=== PATIENT | female | born 1985 | race Caucasian/White ===

== ENCOUNTER → 2019-07-22 | Outpatient (CLI) | payer MEDICARE, OTHER ==
--- NOTE | 2019-07-22 11:11 | CT ---
EXAMINATION TYPE: CT brain wo con DATE OF EXAM: 07/22/2019 COMPARISON: None available at this location INDICATION: Dizziness, Numbness DLP: 1017.9 mGycm, Automated exposure control for dose reduction was used. CONTRAST: None CT of the brain is performed utilizing 3 mm thick sections through the posterior fossa and 3 mm thick sections through the remaining calvarium. Study is performed within 24 hours of arrival to the hosp [facility]. No abnormal hyperdensity is present to suggest an acute intracranial hemorrhage. No mass lesion is evident. No acute infarcts are evident. There is a right sided shunt catheter entering the frontal parietal region with the tip in the latera l ventricle. Right lateral ventricle appears enlarged and slightly irregular. No temporal horn dilata tion is evident. Left lateral ventricle is more normal appearance. No midline shift is evident. Third ventricle appears normal and midline. Fourth ventricle is normal and midline. No dilated sulci are e vident. Paranasal sinuses and mastoid air cells within the [id number] are clear. Craniotomy or nonfusion of the posterior vertex is present. Additional ostomy is in the left parietal-occipital calvarium. IMPRESSIONS: 1. There is prominence of the right lateral ventricle which contains a shunt. However, no temporal horn dilatation is evident suggest acute hydrocephalus. Remaining ventricles are more normal appearan ce. 2. No suspicious acute intracranial changes. There are likely some chronic calvarial changes discusse d above.
== END | disposition home or self-care (01) ==
LOC: RADCTMAIN 10:36
PROVIDERS: ATTEND Family Medicine
DX: R42 Dizziness and giddiness (principal); R20.2 Paresthesia of skin
CPT/HCPCS: 70450; 80053; 80061; 80175; 81001; 82306; 82533; 82550; 82607; 82746; 83001; 83002; 83036; 83615; 83735; 83970; 84146; 84403; 84439; 84443; 85025; 85652; 86038; 86039; 86140

== ENCOUNTER → 2019-08-24 | Outpatient (CLI) | payer MEDICARE, OTHER ==
[2019-08-24 12:39] LABS: Basophils # (A) 0.1 k/uL (0-0.2); Basophils % (A) 1 %; Eosinophils # (A) 0.1 k/uL (0-0.7); Eosinophils % (A) 2 %; HCT 42.5 % (34.0-46.0); HGB 14.3 gm/dL (11.4-16.0); Lymphocytes # (A) 1.9 k/uL (1.0-4.8); Lymphocytes % (A) 25 %; MCH 29.1 pg (25.0-35.0); MCHC 33.7 g/dL (31.0-37.0); MCV 86.3 fL (80.0-100.0); Mean Platelet Volume 7.3; Monocytes # (A) 0.3 k/uL (0-1.0); Monocytes % (A) 4 %; Neutrophils # (A) 5.1 k/uL (1.3-7.7); Neutrophils % (A) 68 %; Platelet Count 268 k/uL (150-450); RBC 4.93 m/uL (3.80-5.40); RDW 14.2 % (11.5-15.5); WBC 7.6 k/uL (3.8-10.6)
[2019-08-24 16:40] LABS: African American GFR (CKD) 86.9 (60.0-200.0); Albumin 5.3 g/dL (3.80-4.90); Albumin/Globulin Ratio 3.12 (1.60-3.17); Anion Gap 9.8 mmol/L (4.00-12.00); Calcium 9.7 mg/dL (8.7-10.3); Carbon Dioxide 27.2 mmol/L (21.6-31.8); Globulin 1.7 g/dL (1.6-3.3); Total Bilirubin 0.3 mg/dL (0.2-1.2)
[2019-08-24 17:56] LABS: Hepatitis B Surface AB- Quant 3.5 mIU/mL; Hepatitis B Surface Antibody Non-Reactive (Non-Reactive); Hepatitis B Surface Antigen Non-Reactive (Non-Reactive)
== END ==
LOC: LABWHC1 10:35
PROVIDERS: ATTEND Family Medicine
DX: Z01.812 Encounter for preprocedural laboratory examination (principal); L40.0 Psoriasis vulgaris
CPT/HCPCS: 36415; 80053; 85025; 86480; 86706; 87340

== ENCOUNTER → 2020-03-16 | Outpatient (CLI) | payer MEDICARE, OTHER | END | disposition home or self-care (01) | LOC: LABWHC1 07:45 | PROVIDERS: ATTEND Internal Medicine Endocrinology, Diabetes & Metabolism | DX: E03.8 Other specified hypothyroidism (principal) | CPT/HCPCS: 36415; 84443 ==

== ENCOUNTER → 2020-05-09 | Outpatient (CLI) | payer MEDICARE, OTHER | END | disposition home or self-care (01) | LOC: LABWHC1 08:27 | PROVIDERS: ATTEND Internal Medicine Endocrinology, Diabetes & Metabolism | DX: E03.8 Other specified hypothyroidism (principal) | CPT/HCPCS: 36415; 84443 ==

== ENCOUNTER → 2020-08-23 | Outpatient (CLI) | payer MEDICARE, OTHER | END | disposition home or self-care (01) | LOC: LABWHC1 08:16 | PROVIDERS: ATTEND Internal Medicine Endocrinology, Diabetes & Metabolism | DX: E03.8 Other specified hypothyroidism (principal) | CPT/HCPCS: 36415; 84443 ==

== ENCOUNTER → 2020-09-02 | Outpatient (CLI) | payer MEDICARE, OTHER | END | disposition home or self-care (01) | LOC: LABWHC1 08:20 | PROVIDERS: ATTEND Internal Medicine Endocrinology, Diabetes & Metabolism | DX: E03.8 Other specified hypothyroidism (principal) | CPT/HCPCS: 36415; 84443 ==

== ENCOUNTER → 2020-09-09 | Outpatient (CLI) | payer MEDICARE, OTHER ==
[2020-09-09 10:55] LABS: Follicle Stimulating Hormone 6.6 mIU/mL; Luteinizing Hormone 2.1 mIU/mL; Prolactin 7.1 ng/mL (2.8-29.2)
== END | disposition home or self-care (01) ==
LOC: LABWHC1 07:12
PROVIDERS: ATTEND Internal Medicine Endocrinology, Diabetes & Metabolism
DX: R53.83 Other fatigue (principal)
CPT/HCPCS: 36415; 82024; 82533; 83001; 83002; 84146; 84305

== ENCOUNTER → 2020-09-15 | Outpatient (CLI) | payer MEDICARE, OTHER ==
[2020-09-15 08:52] LABS: Basophils # (A) 0.1 k/uL (0-0.2); Basophils % (A) 2 %; Eosinophils # (A) 0.2 k/uL (0-0.7); Eosinophils % (A) 3 %; HCT 42.3 % (34.0-46.0); HGB 14.4 gm/dL (11.4-16.0); Lymphocytes # (A) 1.4 k/uL (1.0-4.8); Lymphocytes % (A) 24 %; MCH 28.2 pg (25.0-35.0); MCHC 34.2 g/dL (31.0-37.0); MCV 82.6 fL (80.0-100.0); Mean Platelet Volume 6.8; Monocytes # (A) 0.2 k/uL (0-1.0); Monocytes % (A) 3 %; Neutrophils % (A) 67 %; Platelet Count 265 k/uL (150-450); RBC 5.12 m/uL (3.80-5.40); RDW 14.9 % (11.5-15.5)
--- NOTE | 2020-09-15 10:00 | XR ---
EXAMINATION TYPE: XR chest 2V DATE OF EXAM: 09/15/2020 COMPARISON: 12/31/2015 HISTORY: 34-year-old female night sweats. TECHNIQUE: Frontal and lateral views FINDINGS: The cardiomediastinal silhouette, aorta, and pulmonary vasculature are within normal limits. Lungs an d pleural spaces are clear. Old healed fracture deformity left posterolateral sixth rib. Redemonstrated shunt catheter extending from the cavoatrial junction down along the left side of the body outside the field of view. IMPRESSION: No acute cardiopulmonary process. Left-sided shunt catheter redemonstrated, proximal tip at the cavoa trial junction and lower end beyond the [id number].
[2020-09-15 16:22] LABS: Protein, Total 7.1 g/dL (6.2-8.2)
[2020-09-15 16:37] LABS: C Reactive Protein 0.4 mg/dL (0.0-0.8); Chol/HDL Ratio 7.09; Magnesium 2.2 mg/dL (1.5-2.4)
[2020-09-15 16:38] LABS: African American GFR (CKD) 98.1 (60.0-200.0); Albumin 5.3 g/dL (3.80-4.90); Albumin/Globulin Ratio 3.12 (1.60-3.17); Anion Gap 12.1 mmol/L (4.00-12.00); BUN/Creat Ratio 13.33 Ratio (12.00-20.00); Calcium 10.1 mg/dL (8.7-10.3); Carbon Dioxide 25.9 mmol/L (21.6-31.8); Globulin 1.7 g/dL (1.6-3.3); Non-African American GFR(CKD) 84.6 (60.0-200.0); Potassium 4.1 mmol/L (3.5-5.5); Total Bilirubin 0.4 mg/dL (0.3-1.2)
[2020-09-15 16:59] LABS: Uric Acid 6.7 mg/dL (2.9-7.7)
[2020-09-15 17:46] LABS: Anti-DNA, DS unit <1.0 IU/mL; Anti-Smith Ab Interp NEGATIVE (NEGATIVE); DNA Double-Stranded NEGATIVE (NEGATIVE)
[2020-09-16 03:46] LABS: EBV - VCA IgM <10.0 U/mL (<36.0)
[2020-09-16 12:57] LABS: Angiotensin-1 Converting Enz. 35 U/L (8-52)
[2020-09-16 14:57] LABS: Albumin 4.69 g/dL (3.80-4.90); Gamma Globulin 0.59 g/dL (0.70-1.50)
== END | disposition home or self-care (01) ==
LOC: LABWHC1 08:09
PROVIDERS: ATTEND Family Medicine
DX: Z97.8 Presence of other specified devices (principal); L40.0 Psoriasis vulgaris; R63.5 Abnormal weight gain; E03.9 Hypothyroidism, unspecified; B37.9 Candidiasis, unspecified; Z79.899 Other long term (current) drug therapy
CPT/HCPCS: 36415; 71046; 80053; 80061; 82164; 82306; 82550; 82607; 83036; 83615; 83721; 83735; 83970; 84165; 84443; 84550; 85025; 85652; 86038; 86039; 86140; 86225; 86235; 86431; 86480; 86644; 86645; 86663; 86665; 86780; 87040

== ENCOUNTER → 2020-09-22 | Outpatient (CLI) | payer MEDICARE, OTHER ==
--- NOTE | 2020-09-22 12:40 | ECHOF ---
Referral Reason:R94.31 Abnormal EKG MEASUREMENTS -------- HEIGHT: 152.4 cm WEIGHT: 86.2 kg BP: RVIDd: 2.2 cm (< 3.3) IVSd: 1.1 cm (0.6 - 1.1) LVIDd: 3.1 cm (3.9 - 5.3) LVPWd: 1.4 cm (0.6 - 1.1) IVSs: 1.4 cm LVIDs: 1.6 cm LVPWs: 1.5 cm LAESV Index (A-L): 16.56 ml/m Ao Diam: 2.7 cm (2.0 - 3.7) AV Cusp: 1.7 cm (1.5 - 2.6) LA Diam: 3.1 cm (2.7 - 3.8) MV EXCURSION: 9.371 mm (> 18.000) MV EF SLOPE: 69 mm/s (70 - 150) EPSS: 0.5 cm MV E Neal: 0.51 m/s MV DecT: 151 ms MV A Neal: 0.81 m/s MV E/A Ratio: 0.63 RAP: 5.00 mmHg RVSP: 12.14 mmHg FINDINGS -------- Sinus rhythm. This was a technically adequate study. The left ventricular size is normal. There is mild concentric left ventricular hypertrophy. Overa ll left ventricular systolic function is normal with, an EF between 55 - 60 %. The diastolic fillin g pattern is normal for the age of the patient 13.71. The right ventricle is normal in size. Normal LA size by volume 22+/-6 ml/m2. The right atrial size is normal. Interatrial and interventricular septum intact. The aortic valve is trileaflet, and appears structurally normal. No aortic stenosis or regurgitation. The mitral valve is normal. There is trace to mild mitral regurgitation. The tricuspid valve appears structurally normal. Trace tricuspid regurgitation present. Right johnny tricular systolic pressure is normal at < 35 mmHg. Trace/mild (physiologic) pulmonic regurgitation. The aortic root size is normal. Normal inferior vena cava with normal inspiratory collapse consistent with estimated right atrial pre ssure of 5 mmHg. There is no pericardial effusion. CONCLUSIONS -------- 1. There is mild concentric left ventricular hypertrophy. 2. Overall left ventricular systolic function is normal with, an EF between 55 - 60 %. 3. Normal LA size by volume 22+/-6 ml/m2. 4. The aortic valve is trileaflet, and appears structurally normal. No aortic stenosis or regurgitati on. 5. There is trace to mild mitral regurgitation. 6. Trace tricuspid regurgitation present. 7. Trace/mild (physiologic) pulmonic regurgitation. 8. There is no pericardial effusion. REELING MACHINE SETUP OPERATOR: Haydee Ace RDCS
== END | disposition home or self-care (01) ==
LOC: RADECHMAIN 08:04
PROVIDERS: ATTEND Family Medicine
DX: I34.0 Nonrheumatic mitral (valve) insufficiency (principal); I37.1 Nonrheumatic pulmonary valve insufficiency; I51.7 Cardiomegaly
CPT/HCPCS: 93306

== ENCOUNTER → 2020-11-09 | Outpatient (CLI) | payer MEDICARE, OTHER ==
--- NOTE | 2020-11-09 11:48 | CONS ---
CONSULTATION DATE OF SERVICE: 11/09/2020 A 34-year-old lady had been evaluated in Sleep Center for possible obstructive sleep apnea-hypopnea syndrome. HISTORY OF PRESENT ILLNESS/SLEEP-WAKE EVALUATION: Patient usual sleep schedule usually from 8 p.m. to 7 a.m. Sometimes she has problems with falling asleep, but usually not more than one hour. No TV in bedroom. Patient usually sleeps on the side position. She snores loudly and wakes up 3 times for nocturia. According to her family, she possibly has episodes of stopped breathing during sleep. She grinds her teeth, wakes up with dry mouth, sweating. In the morning, patient wakes up tired, has difficulties to pay attention, falling asleep during the day, worry about her sleep. Has problem with memory, concentration, irritability, depression and anxiety. [place] Sleepiness Scale is 6, but the patient take Adderall 20 mg once a day. She also drinks one diet Pepsi at lunch time. She takes up to 3 naps during the day. No history of hypnagogic hallucinations, sleep paralysis or cataplexy. PAST MEDICAL HISTORY: Positive for , hydrocephalus, hypothyroidism, anxiety, allergy, difficulties to concentrate during the day possible ADHD. History of low cortisol level and then a level of cortisol normalized later. History of hyperlipidemia, history of headaches. PAST SURGICAL HISTORY: History of multiple eye surgeries for the muscle repair, MANAGER TELEMETRY shunt insertion and corrections multiple times with stoma. MEDICATIONS: 10 mg once a day, Synthroid 150 mcg once a day, Zoloft 100 mg 2 tablets in the morning, Inderal 20 mg once a day in the morning, lamotrigine 200 mg at bedtime, Hydroxyzine 20 mg once at bedtime. SOCIAL HISTORY: Negative for smoking or using alcohol. FAMILY HISTORY: Hypertension, diabetes, REVIEW OF SYSTEMS: Multiple awakenings from sleep with nocturia, sleepiness during the day, headaches. PHYSICAL EXAMINATION: GENERAL: lady without distress. VITAL SIGNS: BP 125/76, HR 96, RR 15, height 5 inches 2, weight 203.8, temperature 98.4, oxygen saturation at room air 95%. Body mass index 37.1. HEENT: PERRLA, EOMI. Oropharynx low position of soft palate, Mallampati 3-4, wide neck 16 inches in circumference. NECK: Supple, no JVD. Thyroid is not palpable. LUNGS: Clear to percussion and to auscultation. Good air exchange. No wheezing or rhonchi. HEART: S1, S2 regular. No murmurs, gallops, or rubs. ABDOMEN: Obese. EXTREMITIES: No clubbing or cyanosis. SLEEPING CAR CONDUCTOR: Awake, alert, and oriented X3. Cranial nerves 2 to 7 intact. There is no fasciculation or atrophy. noted. No focal deficits observed. IMPRESSION: 1. Snoring, multiple awakenings from sleep with nocturia, low position of soft palate, wide neck, obstructive sleep apnea-hypopnea syndrome. 2. Symptoms of significant excessive daytime sleepiness. Patient may take naps several times a day, even while taking Adderall 20 mg in the morning. Differential diagnosis should include hypersomnia, possibly narcolepsy secondary to brain problems. 3. History of . 4. History of multiple brain surgery for MANAGER TELEMETRY shunt insertion and corrections. 5. History of hydrocephalus. 6. History of low level of cortisol in the past with lately normalization level of cortisol. 7. Allergies including TOPICAL IODINE. 8. 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 PLAN: 1. Polysomnography for evaluation of patient's breathing during sleep. 2. CPAP/BiPAP titration if sleep study confirms obstructive sleep apnea-hypopnea syndrome. 3. Preferable position during sleep on the side. 4. No driving if patient feels any sleepiness. 5. I will see patient for follow up visit to explain results of testing and following plan. 6. The patient may need multiple sleep latency test for objective evaluation in her symptoms of excessive daytime sleepiness, which should be done without taken Adderall that day. Thank you very much for referring this patient for consultation. Sincerely, Ryland Hanson MD, PhD, FAASM Diplomat of [employer] [employer] [employer] Card Grader of [facility] [place] MMODL / IJN: [id number] /
== END | disposition home or self-care (01) ==
LOC: SLEEP 10:12
PROVIDERS: ATTEND Internal Medicine
DX: G47.33 Obstructive sleep apnea (adult) (pediatric) (principal); Z98.2 Presence of cerebrospinal fluid drainage device; Z86.69 Personal history of other diseases of the nervous system and sense organs; Z91.041 Radiographic dye allergy status; Z79.899 Other long term (current) drug therapy
CPT/HCPCS: 99211

== ENCOUNTER → 2021-02-22 | Outpatient (CLI) | payer MEDICARE, OTHER ==
--- NOTE | 2021-02-22 20:11 | SFUN ---
SLEEP CENTER FOLLOW UP NOTE DATE OF SERVICE: 02/22/2021. HISTORY: A 35-year-old lady has been followed in Sleep Center for treatment of obstructive sleep apnea-hypopnea syndrome. Recently the patient had a polysomnogram and CPAP BiPAP titration. I discussed with the patient in details of sleep studies. She has extremely bad obstructive sleep apnea- hypopnea syndrome with extremely high apnea-hypopnea index and extremely bad oxygen desaturation. Today is her first visit after she was started on treatment with BiPAP. She feels significantly better and feels significant improvements with her alertness during the day. [place] Sleepiness Scale today is only 2. During original consultation [place] Sleepiness Scale was 6. The patient was also was on treatment with Adderall for possible ADD. I checked BiPAP unit, maximal inspiratory pressure 19, minimal expiratory pressure 10, pressure support. Average pressure 17.8 for 13.8. Apnea-hypopnea index is 5.4, which is acceptable. Usage /30 nights with 05/25 nights for more than 4 hours. Average 5.2 hours per night, 6 L/minute. MEDICATIONS: Synthroid 150 mcg once a day, Zoloft 100 mg 2 tablets in the morning, Inderal 20 mg once a day in the morning, lamotrigine 200 mg at bedtime, hydroxyzine 20 mg once at bedtime as well, Lamictal. PHYSICAL EXAMINATION: GENERAL: Patient in no distress. VITAL SIGNS: BP 126/82, HR 96, RR 16, weight 203.2, temperature 97.5. HEENT: PERRLA, EOMI. Oropharynx low position of soft palate, Mallampati 3-4. HEART: S1, S2 regular. No murmurs, gallops or rubs. LUNGS: Clear to percussion and to auscultation. Good air exchange. No wheezing or rhonchi. HEART: S1, S2 regular. No murmurs, gallops, or rubs. ABDOMEN: Slightly obese. Soft and nontender. Bowel sounds are present. No organomegaly appreciated. EXTREMITIES: No clubbing or cyanosis. PRICING ANALYST: Awake, alert, and oriented X3. Cranial nerves 2 to 7 intact. There is no fasciculation or atrophy. noted. No focal deficits observed. IMPRESSION: 1. Extremely severe obstructive sleep apnea-hypopnea syndrome. The apnea-hypopnea index 122, with oxygen desaturation to 30.5%, and with oxygen below normal range during diagnostic sleep study for 228 minutes. The patient demonstrated good compliance with treatment and benefitting from treatment. 2. Obesity. 3. History of multiple brain surgery for FLEET MECHANIC shunt insertion and corrections. 4. History of hydrocephalus. 5. History of low level of cortisol in the past with lately haptoglobin level low. 6. ALLERGY INCLUDING TOPICAL IODINE. 7. 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 8. Hypothyroidism. 9. History of possible ADHD. PLAN: 1. Patient will continue to use PAP equipment every night for the whole night. 2. Sleep hygiene with regular time in bed for at least 7-1/2 to 8 hours. 3. Precautions related to driving. No driving if feeling sleepiness. 4. I will maintain all necessary prescription for PAP supplies including mask, tube, filters. 5. Watching weight. 6. Follow-up visit in 6 months or earlier if patient has any problems. Thank you very much for allowing me to participate in the management of the patient. Ryland Hanson MD, PhD, FAASM Diplomat of [place] [employer] [employer] Medicine Lasting Machine Operator Hand Method of [facility] [place] MMODL / IJN: [id number] /
== END ==
LOC: SLEEP 11:15
PROVIDERS: ATTEND Internal Medicine
DX: G47.33 Obstructive sleep apnea (adult) (pediatric) (principal); G47.36 Sleep related hypoventilation in conditions classified elsewhere; E66.9 Obesity, unspecified; E03.9 Hypothyroidism, unspecified; Z86.69 Personal history of other diseases of the nervous system and sense organs; Z98.890 Other specified postprocedural states; Z86.39 Personal history of other endocrine, nutritional and metabolic disease; Z91.041 Radiographic dye allergy status; Z98.2 Presence of cerebrospinal fluid drainage device; Z99.81 Dependence on supplemental oxygen; Z79.899 Other long term (current) drug therapy

== ENCOUNTER → 2021-08-23 | Outpatient (CLI) | payer MEDICARE, OTHER | END | disposition home or self-care (01) | LOC: LABWHC1 08:41 | PROVIDERS: ATTEND Internal Medicine Endocrinology, Diabetes & Metabolism | DX: E03.8 Other specified hypothyroidism (principal) | CPT/HCPCS: 36415; 84443 ==

== ENCOUNTER → 2021-08-23 | Outpatient (CLI) | payer MEDICARE, OTHER ==
[2021-08-23 15:03] LABS: Basophils # (A) 0.06 X 10*3/uL (0.00-0.10); Eosinophils # (A) 0.22 X 10*3/uL (0.04-0.35); Eosinophils % (A) 3.6 %; HCT 38.6 % (37.2-46.3); HGB 12.1 g/dL (12.0-15.0); Lymphocytes # (A) 1.62 X 10*3/uL (0.90-5.00); Lymphocytes % (A) 26.5 %; MCH 26.7 pg (27.0-32.0); MCHC 31.3 g/dL (32.0-37.0); Mean Platelet Volume 9.3 fL (9.5-12.2); Monocytes # (A) 0.34 X 10*3/uL (0.20-1.00); Monocytes % (A) 5.6 %; Neutrophils # (A) 3.86 X 10*3/uL (1.80-7.70); Platelet Count 215 X 10*3/uL (140-440); RBC 4.54 X 10*6/uL (4.10-5.20); RDW 14.8 % (11.5-14.5); WBC 6.12 X 10*3/uL (4.50-10.00)
[2021-08-23 16:18] LABS: Non-African American GFR(CKD) 80.2 (60.0-200.0)
== END | disposition home or self-care (01) ==
LOC: LABWHC1 08:39
PROVIDERS: ATTEND Dermatology
DX: L40.0 Psoriasis vulgaris (principal)
CPT/HCPCS: 36415; 82565; 84450; 84460; 85025; 86480

== ENCOUNTER → 2021-11-15 | Outpatient (CLI) | payer MEDICARE, OTHER ==
--- NOTE | 2021-11-15 19:45 | SFUN ---
SLEEP CENTER FOLLOW UP NOTE DATE OF SERVICE: 11/15/2021 This 35-year-old lady has been followed in Sleep Center for treatment of obstructive sleep apnea-hypopnea syndrome. The patient continues to use her BiPAP equipment every night. She sleeps well with the machine and is getting her BiPAP supplies on time. [place] Sleepiness Scale today is 4, which is in normal range. I checked her BiPAP unit. Maximal inspiratory pressure is 19, minimal expiratory pressure 10, pressure support of 4, average pressure 18/14. Usage is 28/30 nights and 26/30 nights for more than 4 hours with average usage 6.9 hours per night, which is great compliance. Leak is 4 L/minute, which is normal. Apnea-hypopnea index is 3.1, which is normal. MEDICATIONS: 1. Zoloft 25 mg once a day. 2. Lamictal 200 mg at bedtime. 3. Synthroid 150 mcg once a day. 4. Adderall 20 mg in the morning. PHYSICAL EXAMINATION: GENERAL: Pleasant patient in no distress. VITAL SIGNS: BP 127/86, HR 98, RR 16, weight 214.2, temperature 96.5, oxygen saturation at room air 97%. HEENT: PERRLA, EOMI, evaluation of oropharynx showed tongue protrudes midline. Low position of soft palate; Mallampati III to IV. NECK: Supple, no JVD. Thyroid is not palpable. LUNGS: Clear to percussion and to auscultation. Good air exchange. No wheezing or rhonchi. HEART: S1, S2 regular. No murmurs, gallops, or rubs. ABDOMEN: Obese. EXTREMITIES: No clubbing or cyanosis. MOTION PICTURES CARTOONIST: Awake, alert, and oriented X3. Cranial nerves 2 to 7 intact. There is no fasciculation or atrophy. noted. No focal deficits observed. IMPRESSION: 1. Extremely severe obstructive sleep apnea-hypopnea syndrome; apnea-hypopnea index 122 with oxygen desaturation to 30.5%. Patient demonstrated great compliance with treatment, benefitting from treatment. Normal respiration on BiPAP. Apnea-hypopnea index 3.1. 2. 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 3. History of hydrocephalus. 4. Obesity. 5. History of low level of cortisol in the past. 6. Hypothyroidism. 7. Allergies, including topical iodine. 8. History of possible attention deficit hyperactivity disorder. 9. 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 PLAN: 1. Patient will continue to use PAP equipment every night for the whole night. 2. Sleep hygiene with regular time in bed for at least 7-1/2 to 8 hours. 3. Precautions related to driving. No driving if feeling sleepiness. 4. I will maintain all necessary prescription for PAP supplies including mask, tube, filters. 5. Watching weight. 6. Follow-up visit in 6 months or earlier if patient has any problems. Thank you very much for allowing me to participate in the management of your patient. Sincerely, Ryland Hanson MD, PhD, FAASM Diplomat of [place] [employer] Sleep Medicine Board of [place] [employer] Medicine Bilingual Account Manager of [facility] [place] MMSIDNEYL / OPHELIAN: [id number] /
== END ==
LOC: SLEEP 14:21
PROVIDERS: ATTEND Internal Medicine
DX: G47.33 Obstructive sleep apnea (adult) (pediatric) (principal); G47.36 Sleep related hypoventilation in conditions classified elsewhere; Z99.89 Dependence on other enabling machines and devices; Z98.890 Other specified postprocedural states; E66.9 Obesity, unspecified; E03.9 Hypothyroidism, unspecified; Z86.59 Personal history of other mental and behavioral disorders; Z86.69 Personal history of other diseases of the nervous system and sense organs; Z86.39 Personal history of other endocrine, nutritional and metabolic disease; Z79.890 Hormone replacement therapy

== ENCOUNTER → 2022-03-05 | Outpatient (CLI) | payer MEDICARE, OTHER | END | disposition home or self-care (01) | LOC: LABWHC1 07:31 | PROVIDERS: ATTEND Internal Medicine Endocrinology, Diabetes & Metabolism | DX: E03.8 Other specified hypothyroidism (principal) | CPT/HCPCS: 36415; 84443 ==

== ENCOUNTER → 2022-03-07 | Outpatient (CLI) | payer MEDICARE, OTHER ==
--- NOTE | 2022-03-07 14:58 | P.PN ---
Subjective DATE: 03/07/2022 FOLLOW UP VISIT. Patient with obstructive sleep apnea hypopnea syndrome return to sleep center for follow-up visit. Information from previous visit have been reviewed. Patient has difficulties with the usage of the machine. She has difficulties to exhale while she is using sure BiPAP unit. [place] sleepiness scale is 9. I checked information from PAP unit. PAP unit pressure maximum inspiratory pressure 19 minimal expiratory pressure 10, pressure-support 4 cm of water, average pressure in the range of 16 or 12 cm H2O. Usage is 40 % for more then 4 hours, average 4 hours 59 minutes per night. Leak is 2.6 l/m, which is in acceptable range. Apnea Hypopnea Index is 2.9, which is normal. MEDICATIONS:1. Zoloft 25 mg once a day 2. Folate 150 g once a day 3. Adderall 20 mg once a day in the morning 4. Lamictal 200 mg once a day at night 5. Zyrtec 10 mg at night During physical exam: GENERAL: A pleasant patient without any distress. VITAL SIGNS: BP 118/87, HR 87, RR [place] , weight 212.2, temperature 97.2, oxygen saturation at room air 96 % . HEENT: PERRLA, EOMI.low position of soft palate, Mallapati 34 . NECK: Supple. No JVD. LUNGS: Clear to percussion and to auscultation. Good air exchange. No wheezing or rhonchi. HEART: S1, S2 regular. ABDOMEN: Soft and nontender. Obese EXTREMITIES: No clubbing or cyanosis. TRANSITION SPECIALIST: Awake, alert, and oriented x3. No focal deficit. Impressions: 1. Obstructive sleep apnea-hypopnea syndrome. Patient has difficulties with the usage of BiPAP equipment mostly related to difficulties with exhalation. 2. Obesity. 3. History of hydrocephalus. 4. 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 5. Hypothyroidism. 6. ALLERGIES, including ALLERGY to topical iodine. 7. History of possible ADHD. 8. 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 I decreased minimal expiratory pressure to 5 cm of water. Patient tried BiPAP unit in the office and she feels that machine works great for sure at the present time after changes was done. Plan: 1. Continue using PAP equipment every night for the whole night. I changed pressure in BiPAP unit to a minimal expiratory pressure 5 cm of water. 2. To change air filter at least 1-2 times per month. 3. PAP unit should stay lower then position of the head. 4. Advised patient to remove all remaining water from humidifier canister daily and make it dry after each usage. Refill canister with fresh distilled water before each usage. 5. Sleep hygiene with regular time in bed for at least 8 hours. 6. Precautions related to driving. No driving if feel any sleepiness. 7. I will maintain prescription for PAP supplies including mask, tube, filters. 8. Follow up visit in 6 months or earlier if patient has any problems. 9. Watching weight. Thank you very much for allowing me to participate in the management of your patient. Ryland Hanson MD, PhD, FAASM. Diplomat of [place] [employer], Sleep Medicine Board by [place] [employer] Heat Treat Furnace Operator of [facility] [place]
== END ==
LOC: SLEEP 14:01
PROVIDERS: ATTEND Internal Medicine
DX: G47.33 Obstructive sleep apnea (adult) (pediatric) (principal); E66.9 Obesity, unspecified; Z99.89 Dependence on other enabling machines and devices; E03.9 Hypothyroidism, unspecified; Z98.890 Other specified postprocedural states; T78.40XA Allergy, unspecified, initial encounter; Z86.69 Personal history of other diseases of the nervous system and sense organs; Z91.041 Radiographic dye allergy status

== ENCOUNTER → 2022-05-10 | Outpatient (CLI) | payer MEDICARE, OTHER ==
--- NOTE | 2022-05-10 12:11 | P.PN ---
Subjective DATE: 05/10/2022 FOLLOW UP VISIT. Patient with obstructive sleep apnea hypopnea syndrome return to sleep center for follow-up visit. Information from previous visit have been reviewed. During previous visit because patient has some difficulties with exhalation I changed pressure in BiPAP unit down to maximal inspiratory pressure 16 cm of water and minimal expiratory pressure 5 cm of water. Patient tried to use machine but while using it, continue to snore. Level of the water in humidifier also does not change while patient using her BiPAP, possibly humidifier doesn't work well. [place] sleepiness scale is 9. I checked BIPAP unit. BIPAP unit pressure maximal inspiratory pressure 16, minimal expiratory pressure 5, pressure support for, average pressure 12.8 over 9.5cm H2O. Usage is 10 % for more then 4 hours, average 5.8 hours hours per night. Leak is 1.2 l/m, which is in acceptable range. Apnea Hypopnea Index is increased to 12.3. Heated humidifier doesn't work properly, temperature of heated surface at the level of humidity 4 slightly warm. MEDICATIONS:1. Synthroid 150 g once a day 2. Topiramate 25 mg once a day 3. Phentermine 27.5 mg once a day 4. Lamictal 200 mg once a day 5. Zoloft 25 mg once a day During physical exam: GENERAL: A pleasant patient without any distress. VITAL SIGNS: BP 148/94, HR 81, RR 16, weight 210.2, temperature 96.4, oxygen saturation at room air 97 % . HEENT: PERRLA, EOMI.low position of soft palate, Mallapati 3-4 . NECK: Supple. No JVD. LUNGS: Clear to percussion and to auscultation. Good air exchange. No wheezing or rhonchi. HEART: S1, S2 regular. ABDOMEN: Soft and nontender. Obese EXTREMITIES: No clubbing or cyanosis. PUNCH MOLDER: Awake, alert, and oriented x3. No focal deficit. Impressions: 1. Obstructive sleep apnea-hypopnea syndrome. Patient developed snoring after pressure was reduced during the previous visit. Humidifier does not work properly. 2. Obesity. 3. History of hydrocephalus. 4. 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 5. Hypothyroidism. 6. History of possible ADHD. 7. ALLERGIES, including ALLERGY to topical iodine. 8. 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 Plan: 1. Continue using BIPAP equipment every night for the whole night. I -adjusted BiPAP pressure up to maximal inspiratory pressure 19 and minimal expiratory pres sure 10 cm of water. 2. I decreased patient and family how to adjust temperature in humidifier. Level of immediate was increased from 4 to 7. Prescription to replace BiPAP unit because humidifier does not work properly 3. PAP unit should stay lower then position of the head. 4. Advised patient to remove all remaining water from humidifier canister daily and make it dry after each usage. Refill canister with fresh distilled water before each usage. 5. Sleep hygiene with regular time in bed for at least 8 hours. 6. Precautions related to driving. No driving if feel any sleepiness. 7. I will maintain prescription for PAP supplies including mask, tube, filters. 8. Follow up visit in 1 months . 9. Watching and losing weight. Thank you very much for allowing me to participate in the management of your patient. Ryland Hanson MD, PhD, FAASM. Diplomat of [place] [employer], Sleep Medicine Board by [place] Medicine Workforce Planning Analyst of [facility] [place]
== END ==
LOC: SLEEP 11:22
PROVIDERS: ATTEND Internal Medicine
DX: G47.33 Obstructive sleep apnea (adult) (pediatric) (principal); E66.9 Obesity, unspecified; Z98.890 Other specified postprocedural states; E03.9 Hypothyroidism, unspecified; Z99.89 Dependence on other enabling machines and devices; Z91.041 Radiographic dye allergy status; Z79.890 Hormone replacement therapy; Z79.899 Other long term (current) drug therapy; Z86.69 Personal history of other diseases of the nervous system and sense organs

== ENCOUNTER → 2022-06-07 | Outpatient (CLI) | payer MEDICARE, OTHER ==
--- NOTE | 2022-06-07 15:09 | P.PN ---
Subjective DATE: 06/07/2022 FOLLOW UP VISIT. Patient with obstructive sleep apnea hypopnea syndrome return to sleep center for follow-up visit. Information from previous visit have been reviewed. Patient is is trying to use BIPAP equipment every night, but because of problems with humidity she was not able to use it every night. This patient e xplained some nights humidifier did work well and some nights it did not. The patient does not have significant problems with the mask or pressure. [place] sleepiness scale is 6, which is in normal range. I checked BIPAP unit. BIPAP unit pressure maximal inspiratory pressure 19, minimal expiratory pressure 10, pressure-support 4, average pressure 17.5 over 13.8 cm H2O. Usage is, about 70 % for more then 4 hours, average 6 hours per night. Leak is 1 l/m, which is in perfect range. Apnea Hypopnea Index is 6.6, which is borderline, significantly improved from previous visit when it was 12.3. MEDICATIONS:1.. Topiramate 25 mg once a day 2., Lamictal 200 mg once a day 3., Zoloft 25 mg once a day 4., Synthroid 150 g once a day 5.. Phentermine 27.5 mg once a day During physical exam: GENERAL: A pleasant patient without any distress. VITAL SIGNS: BP 133/78, HR, 97, RR 16, weight 214.8, temperature, 97.3, oxygen saturation at room air, 97 % . HEENT: PERRLA, EOMI.low position of soft palate, Mallapati 3-4 . NECK: Supple. No JVD. LUNGS: Clear to percussion and to auscultation. Good air exchange. No wheezing or rhonchi. HEART: S1, S2 regular. ABDOMEN: Soft and nontender.[] EXTREMITIES: No clubbing or cyanosis. DIE WELDER: Awake, alert, and oriented x3. No focal deficit. Impressions: 1. Obstructive sleep apnea-hypopnea syndrome. Patient demonstrated borderline compliance with treatment, benefiting from treatment. 2. Obesity. 3.. History of hydrocephalus. 4. 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 5.. Hypothyroidism. 6.. History of possible ADHD. 7.. History of ALLERGY, including ALLERGY to topical iodine. 8.. 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 Plan: 1. Continue using PAP equipment every night for the whole night. 2. I explained patient how to adjust temperature in humidifier and in the tube. 3. PAP unit should stay lower then position of the head. 4. Advised patient to remove all remaining water from humidifier canister daily and make it dry after each usage. Refill canister with fresh distilled water before each usage. 5. Sleep hygiene with regular time in bed for at least 8 hours. 6. Precautions related to driving. No driving if feel any sleepiness. 7. I will maintain prescription for PAP supplies including mask, tube, filters. 8. Follow up visit in 6 months or earlier if patient has any problems. 9. Watching and losing weight. Thank you very much for allowing me to participate in the management of your patient. Ryland Hanson MD, PhD, FAASM. Diplomat of [place] [employer], Sleep Medicine Board by [place] [employer] Cloud Engineer of [facility] [place]
== END ==
LOC: SLEEP 14:04
PROVIDERS: ATTEND Internal Medicine
DX: G47.33 Obstructive sleep apnea (adult) (pediatric) (principal); Z99.89 Dependence on other enabling machines and devices; Z86.69 Personal history of other diseases of the nervous system and sense organs; E03.9 Hypothyroidism, unspecified; Z98.890 Other specified postprocedural states
CPT/HCPCS: 99212

== ENCOUNTER → 2022-09-06 | Outpatient (CLI) | payer MEDICARE, OTHER ==
[2022-09-06 15:33] LABS: Basophils # (A) 0.11 X 10*3/uL (0.00-0.10); Basophils % (A) 1.5 %; Eosinophils # (A) 0.14 X 10*3/uL (0.04-0.35); Eosinophils % (A) 1.9 %; HCT 40.7 % (37.2-46.3); Immature Grans, Automated 0.5 %; Lymphocytes # (A) 2.21 X 10*3/uL (0.90-5.00); Lymphocytes % (A) 29.4 %; MCH 27.4 pg (27.0-32.0); MCHC 31.9 g/dL (32.0-37.0); MCV 85.9 fL (80.0-97.0); Mean Platelet Volume 9.9 fL (9.5-12.2); Monocytes # (A) 0.34 X 10*3/uL (0.20-1.00); Monocytes % (A) 4.5 %; NRBC Per 100 WBC 0 /100 WBCS (0.0-0.0); Neutrophils # (A) 4.67 X 10*3/uL (1.80-7.70); Neutrophils % (A) 62.2 %; Platelet Count 228 X 10*3/uL (140-440); RBC 4.74 X 10*6/uL (4.10-5.20); RDW 14.8 % (11.5-14.5); WBC 7.51 X 10*3/uL (4.50-10.00)
[2022-09-06 16:28] LABS: African American GFR (CKD) 96.7 (60.0-200.0); Non-African American GFR(CKD) 83.4 (60.0-200.0)
== END | disposition home or self-care (01) ==
LOC: LABWHC1 10:16
PROVIDERS: ATTEND Dermatology
DX: L40.0 Psoriasis vulgaris (principal)
CPT/HCPCS: 36415; 82565; 84450; 84460; 85025; 86480

== ENCOUNTER → 2022-12-26 | Outpatient (CLI) | payer MEDICARE, OTHER ==
--- NOTE | 2022-12-26 11:22 | P.PN ---
Subjective DATE: 12/26/2022 FOLLOW UP VISIT. Patient with obstructive sleep apnea hypopnea syndrome return to sleep center for follow-up visit. Information from previous visit have been reviewed. Patient is trying to use PAP equipment every night for the whole night, getting PAP supplies in time. Patient has significant problems related to condensation of water in the tube. Position of BPAP unit is correct it is below level of the head. Patient tried to changed temperature and humidifier down, but still there is a significant condensation of water in the tube. [place] sleepiness scale is 4, which is normal. I checked information from PAP unit. BPAP unit pressure 17/13 cm H2O. Usage is about 50 % for more then 4 hours. Leak is 0 l/m, which is in acceptable range. Apnea Hypopnea Index is 4.2, which is normal. MEDICATIONS:1. Synthroid 150 g once a day 2. Lamictal 200 mg once a day 3. Zoloft 25 mg once a day 4. Zyrtec 10 mg 5. Topiramate 25 mg once a day During physical exam: GENERAL: A pleasant patient without any distress. VITAL SIGNS: BP 124/82, HR 100, RR 12 , weight 195.4, temperature 97.8, oxygen saturation at room air 97 % . HEENT: PERRLA, EOMI.low position of soft palate, Mallapati 3-4 . NECK: Supple. No JVD. LUNGS: Clear to percussion and to auscultation. Good air exchange. No wheezing or rhonchi. HEART: S1, S2 regular. ABDOMEN: Soft and nontender. Slightly obese EXTREMITIES: No clubbing or cyanosis. TRAFFIC I MANAGER: Awake, alert, and oriented x3. No focal deficit. I again reviewed with patient how to adjust level of humidity and temperature in the tube. Temperature in the tube was increased to 84 and level of humidity was decreased to the level of 2. We tried BiPAP unit in the office. Humidifier is working well, but temperature in the tube did not go up, possibly mechanism of her tubing is not working. Impressions: 1. Obstructive sleep apnea-hypopnea syndrome. Patient demonstrated borderline compliance with treatment secondary to problems humidification, benefiting from treatment normal respiration while using BiPAP. 2. Obesity, BMI 36.8. 3. Hypothyroidism. 4. History of ALLERGY. 5. 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 6. History of possible ADHD. 7. 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 Plan: 1. Continue using BPAP equipment every night for the whole night. 2. Prescription to fix heating tubing mechanism. 3. BPAP unit should stay lower then position of the head. 4. Advised patient to remove all remaining water from humidifier canister daily and make it dry after each usage. Refill canister with fresh distilled water before each usage. 5. Sleep hygiene with regular time in bed for at least 8 hours. 6. Precautions related to driving. No driving if feel any sleepiness. 7. I will maintain prescription for PAP supplies including mask, tube, filters. 8. Follow up visit in 6 months or earlier if patient has any problems. 9. Watching and losing weight. Thank you very much for allowing me to participate in the management of your patient. Ryland Hanson MD, PhD, FAASM. Diplomat of [place] [employer], Sleep Medicine Board by [employer] Intern of [facility] [place]
== END ==
LOC: SLEEP 10:21
PROVIDERS: ATTEND Internal Medicine
DX: G47.33 Obstructive sleep apnea (adult) (pediatric) (principal); E03.9 Hypothyroidism, unspecified; E66.9 Obesity, unspecified; Z68.36 Body mass index [BMI] 36.0-36.9, adult; Z79.899 Other long term (current) drug therapy; Z98.2 Presence of cerebrospinal fluid drainage device; Z98.890 Other specified postprocedural states; Z99.89 Dependence on other enabling machines and devices; Z79.890 Hormone replacement therapy
CPT/HCPCS: 99212

== ENCOUNTER → 2023-07-10 | Outpatient (CLI) | payer MEDICARE, OTHER ==
--- NOTE | 2023-07-10 11:39 | P.PN ---
Subjective DATE: 07/10/2023 FOLLOW UP VISIT. Patient with obstructive sleep apnea hypopnea syndrome return to sleep center for follow-up visit. Information from previous visit have been reviewed. Patient had problems with her CPAP unit, received looner for usage of the present time. Patient is using PAP equipment every night for the whole night, getting PAP supplies in time. The patient does not have significant problems with the mask, PAP unit and humidification. [place] sleepiness scale is 5, which is normal. I checked information from PAP unit. PAP unit pressure maximal inspiratory pressure 19, minimal expiratory pressure 10, pressure-support 4, average pressure 18.2 over 14.2 cm H2O. Usage is 90 % for more then 4 hours, average 6.6 hours per night. Leak is 5 l/m, which is in acceptable range. Apnea Hypopnea Index is 2.9, which is normal. MEDICATIONS:1. Lamictal 200 mg once a day 2. Adderall 25 mg once a day 3. Hydroxyzine 25 mg once a day 4. Wellbutrin 5. Skyrizi 150 mg injections every 3 months During physical exam: GENERAL: A pleasant patient without any distress. VITAL SIGNS: BP 125/85, HR 103, RR 18, weight 213.8, temperature 98.2, oxygen saturation at room air 95 % . HEENT: PERRLA, EOMI.low position of soft palate, Mallapati 3-4 . NECK: Supple. No JVD. LUNGS: Clear to percussion and to auscultation. Good air exchange. No wheezing or rhonchi. HEART: S1, S2 regular. ABDOMEN: Soft and nontender. Obese EXTREMITIES: No clubbing or cyanosis. MILKING WORKER: Awake, alert, and oriented x3. No focal deficit. Impressions: 1. Obstructive sleep apnea-hypopnea syndrome. Patient demonstrated great compliance with treatment, benefiting from treatment. 2. Obesity. 3. History of hypothyroidism. 4. History of ALLERGY. 5. 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 6. History of possible ADHD. 7. 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 Plan: 1. Continue using PAP equipment every night for the whole night. 2. To change air filter at least 1-2 times per month. 3. PAP unit should stay lower then position of the head. 4. Advised patient to remove all remaining water from humidifier canister daily and make it dry after each usage. Refill canister with fresh distilled water before each usage. 5. Sleep hygiene with regular time in bed for at least 8 hours. 6. Precautions related to driving. No driving if feel any sleepiness. 7. I will maintain prescripti.on for PAP supplies including mask, tube, filters. 8. Watching and losing weight 9. Follow up visit in 6 months or earlier if patient has any problems. Thank you very much for allowing me to participate in the management of your patient. Ryland Hanson MD, PhD, FAASM. Diplomat of [place] [employer], Sleep Medicine Board by [employer] Coin Machine Supervisor of [facility] [place]
== END ==
LOC: SLEEP 10:53
PROVIDERS: ATTEND Internal Medicine
DX: G47.33 Obstructive sleep apnea (adult) (pediatric) (principal); E03.9 Hypothyroidism, unspecified; E66.9 Obesity, unspecified; Z79.899 Other long term (current) drug therapy; Z98.2 Presence of cerebrospinal fluid drainage device; Z99.89 Dependence on other enabling machines and devices; Z98.890 Other specified postprocedural states
CPT/HCPCS: 99212

== ENCOUNTER → 2024-02-12 | Outpatient (CLI) | payer MEDICARE, OTHER ==
[2024-02-12 10:54] VITALS: BP 123/81; PULSE 108; RESP 16; TEMP 98.1
--- NOTE | 2024-02-12 11:33 | P.PROGSL ---
Subjective DATE: 02/12/2024 FOLLOW UP VISIT. Patient with obstructive sleep apnea hypopnea syndrome return to sleep center for follow-up visit. Information from previous visit have been reviewed. Patient is using PAP equipment every night for the whole night, getting PAP supplies in time. The patient does not have significant problems with the mask, PAP unit and humidification. [place] sleepiness scale is 3, which is normal. I checked information from PAP unit. PAP unit pressure maximal inspiratory pressure 19, minimal expiratory pressure 10, pressure support 4, average pressure 16.9/12.9 cm H2O. Usage is 98% , average 3.7 hours per night. Leak is 5 l/m, which is in acceptable range. Apnea Hypopnea Index is 1.1, which is normal. MEDICATIONS: Please see below During physical exam: GENERAL: A pleasant patient without any distress. VITAL SIGNS: Please see below, weight 210.8 pounds, BMI 39.2. HEENT: PERRLA, EOMI.low position of soft palate, Mallapati 34. NECK: Supple. No JVD. LUNGS: Clear to percussion and to auscultation. Good air exchange. No wheezing or rhonchi. HEART: S1, S2 regular. ABDOMEN: Soft and nontender. Slightly obese EXTREMITIES: No clubbing or cyanosis. PLASMA TABLE OPERATOR: Awake, alert, and oriented x3. No focal deficit. Impressions: 1. Obstructive sleep apnea-hypopnea syndrome. Patient demonstrated great compliance with treatment, benefiting from treatment. 2. Hypothyroidism. 3. Obesity, patient lost 3 pounds comparing with previous visit. 4. History of allergy. 5. History of possible ADHD. 6. 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 7. 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 Plan: 1. Continue using PAP equipment every night for the whole night. 2. To change air filter at least 1-2 times per month. 3. PAP unit should stay lower then position of the head. 4. Advised patient to remove all remaining water from humidifier canister daily and make it dry after each usage. Refill canister with fresh distilled water before each usage. 5. Sleep hygiene with regular time in bed for at least 8 hours. 6. Precautions related to driving. No driving if feel any sleepiness. 7. I will maintain prescription for PAP supplies including mask, tube, filters. 8. Follow up visit in 6 months or earlier if patient has any problems. 9. Watching and losing weight. Thank you very much for allowing me to participate in the management of your patient. Ryland Hanson MD, PhD, FAASM. Diplomat of [place] [employer], Sleep Medicine Board by [place] [employer] Director Athletic of [facility] [place] Objective - Vital Signs Vital Signs: Vital Signs Temp 98.1 F 02/12/24 10:53 Pulse 108 H 02/12/24 10:53 Resp 16 02/12/24 10:53 BP 123/81 02/12/24 10:53 Pulse Ox 97 02/12/24 10:53 FiO2 Home Medications: Home Medications Medication Instructions Recorded Confirmed Type Dextroamphetamine/Amphetamine 02/12/24 History [Adderall Xr 25 mg Capsule] Fremanezumab-Vfrm [Ajovy 02/12/24 02/12/24 History Autoinjector] Levothyroxine Sodium [Synthroid] 150 mcg PO 02/12/24 History Risankizumab-Rzaa [Skyrizi Pen] 150 mg SQ 02/12/24 History buPROPion SR [Wellbutrin SR] 150 mg PO BID 02/12/24 02/12/24 History lamoTRIgine [LaMICtal] 200 mg PO 02/12/24 History
== END ==
LOC: 3 N SLEEP 10:33
PROVIDERS: ATTEND Internal Medicine
DX: G47.33 Obstructive sleep apnea (adult) (pediatric) (principal); E03.9 Hypothyroidism, unspecified; E66.9 Obesity, unspecified; Z86.69 Personal history of other diseases of the nervous system and sense organs; Z98.890 Other specified postprocedural states; Z99.89 Dependence on other enabling machines and devices; Z68.39 Body mass index [BMI] 39.0-39.9, adult; Z79.890 Hormone replacement therapy; Z91.09 Other allergy status, other than to drugs and biological substances
CPT/HCPCS: 99212